=== PATIENT | male | born 1985 | race Caucasian/White ===

== ENCOUNTER 2016-07-06 05:56 | Emergency (ER) | payer MEDICAID ==
[~2016-07-06] VITALS: Ht 170.2 cm; Wt 62.8 kg
[~2016-07-06 05:56] MED LIST: OLAN2.5T3 PO
[2016-07-06 06:58] VITALS: BP 108/71
[2016-07-06] MEDS ORDERED: VANCOMYCIN PMX 1GM/200ML 200 ML IV ONE (07:00)
== END 2016-07-06 08:01 | disposition home or self-care (01) ==
LOC: ED 07:51
DX: L03.114 Cellulitis of left upper limb (principal); L02.413 Cutaneous abscess of right upper limb
CPT/HCPCS: 10061; 96365; 99284; J3370

== ENCOUNTER 2016-08-02 09:46 | Emergency (ER) | payer MEDICAID ==
[~2016-08-02] VITALS: Ht 170.2 cm; Wt 62.5 kg
[2016-08-02 09:50] VITALS: BP 115/78
[2016-08-02] MEDS ORDERED: SERT50TA PO (10:21)
== END 2016-08-02 10:52 | disposition home or self-care (01) ==
LOC: ED 10:30
DX: Z76.0 Encounter for issue of repeat prescription (principal); F20.9 Schizophrenia, unspecified; F15.10 Other stimulant abuse, uncomplicated
CPT/HCPCS: 99283

== ENCOUNTER 2016-12-23 09:56 | Emergency (ER) | payer MEDICAID ==
[~2016-12-23] VITALS: Ht 170.2 cm; Wt 67.6 kg
[~2016-12-23 09:56] MED LIST changes: +SERT50TA PO
[2016-12-23 11:01] VITALS: BP 122/81
== END 2016-12-23 11:26 | disposition left against medical advice (07) ==
LOC: ED 10:31
DX: R07.2 Precordial pain (principal); F19.10 Other psychoactive substance abuse, uncomplicated
CPT/HCPCS: 71010; 93005; 99284

== ENCOUNTER 2017-04-28 01:19 | Emergency (ER) | payer SELFPAY ==
[~2017-04-28] VITALS: Ht 170.2 cm; Wt 60.0 kg
[2017-04-28] MEDS ORDERED: KETOROLAC 30 MG/1 ML ONE (01:43)
[2017-04-28] MEDS ORDERED: DIPH,PERTUSS(ACELL),TET VAC/PF 0.5 ML IM-VACC ONE ×2 (01:43→02:00)
[2017-04-28] MEDS ORDERED: KETOROLAC 30 MG/1 ML IM ONE (02:00)
[2017-04-28 03:31] VITALS: BP 88/55
== END 2017-04-28 03:42 | disposition home or self-care (01) ==
LOC: ED 03:36
DX: S52.601A Unspecified fracture of lower end of right ulna, initial encounter for closed fracture (principal); S50.811A Abrasion of right forearm, initial encounter; S50.812A Abrasion of left forearm, initial encounter; G89.11 Acute pain due to trauma; Y04.0XXA Assault by unarmed brawl or fight, initial encounter; Y93.89 Activity, other specified; Y92.89 Other specified places as the place of occurrence of the external cause; Y99.8 Other external cause status
CPT/HCPCS: 29125; 73090; 90471; 90715; 96372; 99284; J1885

== ENCOUNTER 2017-12-10 11:29 | Emergency (ER) | payer MEDICAID, OTHER ==
[~2017-12-10] VITALS: Ht 170.2 cm; Wt 73.9 kg
[2017-12-10] MEDS ORDERED: LORazepam 1MG TABLET PO ONE (13:30)
[2017-12-10 13:46] VITALS: BP 114/77
== END 2017-12-10 13:48 | disposition home or self-care (01) ==
LOC: ED 13:40
DX: F41.1 Generalized anxiety disorder (principal); R44.0 Auditory hallucinations; F17.200 Nicotine dependence, unspecified, uncomplicated
CPT/HCPCS: 99284

== ENCOUNTER 2018-04-20 17:58 | Emergency (ER) | payer MEDICAID ==
[~2018-04-20] VITALS: Ht 170.2 cm; Wt 78.0 kg
--- NOTE | 2018-04-20 18:16 | NUR ---
BIB [facility] WITH C/O AUDITORY HALLUCINATIONS. PT WAS RELEASED ALCOHOL REHAB TODAY AFTER BEING IN REHAB FOR 30 DAYS. STATES DRANK 1 BEER TODAY. HX OF SCHIZOPHRENIA. STATES HALLUCINATIONS X 5 YEARS. DENIES HI/SI. PT REQUESTING INPATIENT MENTAL HEALTH FOR MEDICATION CHANGE. NAD NOTED AT THIS TIME. BREATHING REGULAR AND UNLABORED. PT PLACED ON CONT PULSE OX AND BP.
[2018-04-20] MEDS ORDERED: LORazepam 1MG TABLET PO ONE (18:30)
[2018-04-20] MEDS ORDERED: PLEASE ENTER HEIGHT AND WEIGHT MC SCH (18:30)
--- NOTE | 2018-04-20 18:41 | NUR ---
SW AT BEDSIDE.
[2018-04-20] MEDS ORDERED: LORazepam 1MG TABLET ONE (18:58)
--- NOTE | 2018-04-20 19:12 | NUR ---
REPROT TO GI VARGAS.
--- NOTE | 2018-04-20 19:14 | NUR ---
REPORT RECEIVED FROM GI PEACOCK PT TO BE DC'D.
--- NOTE | 2018-04-20 19:20 | NUR ---
Note ronald in EDM - 04/20/18 at 1931 by BRYCE pt not found in room, no belongings present. all monitors have been removed and left on bed, gown on bed. pt exit not observed by staff. pt departed before receiving dc instructions.
[2018-04-20 19:21] VITALS: BP 114/73
--- NOTE | 2018-04-20 19:31 | NUR ---
NOTE UNDONE, CHARTED IN ERROR.
--- NOTE | 2018-04-20 19:32 | NUR ---
PT GIVEN DC INSTRUCTIONS. PT REPORTS FEELING BETTER S/P ATIVAN. PT EDUCATED NOT TO DRIVE, PT STATES HE HAS BUS PASS. PT A&O, RESPS EVEN AND UNLABORED, NO COMPLAINT AT DC. PT AMB TO DC DESK WITH STEADY GAIT, NADN AT DC.
== END 2018-04-20 19:22 | disposition home or self-care (01) ==
LOC: ED 18:27
DX: F41.1 Generalized anxiety disorder (principal); F17.200 Nicotine dependence, unspecified, uncomplicated
CPT/HCPCS: 99284

== ENCOUNTER 2018-09-25 17:10 | Emergency (ER) | payer MEDICAID ==
[~2018-09-25] VITALS: Ht 170.2 cm; Wt 61.6 kg
[2018-09-25 17:15] VITALS: BP 119/68
== END 2018-09-25 17:54 | disposition home or self-care (01) ==
LOC: ED 17:15
DX: L03.113 Cellulitis of right upper limb (principal); L03.116 Cellulitis of left lower limb; L03.115 Cellulitis of right lower limb; L03.114 Cellulitis of left upper limb
CPT/HCPCS: 99283

== ENCOUNTER 2019-04-15 15:44 | Emergency (ER) | payer MEDICAID ==
[~2019-04-15] VITALS: Ht 182.9 cm; Wt 75.0 kg
[2019-04-15 16:14] LABS: BASOPHILS # (AUTO) 0.06 x10^3/uL (0-0.1); BASOPHILS % (AUTO) 1 % (0-1); EOSINOPHILS # (AUTO) 0.09 x10^3/uL (0-0.4); EOSINOPHILS % (AUTO) 1 % (1-7); LYMPHOCYTES # (AUTO) 4.08 x10^3/uL (1-3.4); LYMPHOCYTES % (AUTO) 44 % (22-44); MD NO; MEAN CORPUSCULAR HEMOGLOBIN 32.1 pg (27.5-34.5); MEAN CORPUSCULAR HGB CONC 33.8 g/dL (33.2-36.2); MEAN CORPUSCULAR VOLUME 94.9 fL (81-97); MEAN PLATELET VOLUME 6.8 fL (7.4-10.4); MONOCYTES # (AUTO) 0.65 x10^3/uL (0.2-0.8); MONOCYTES % (AUTO) 7 % (2-9); NEUTROPHILS % (AUTO) 48 % (42-75); PLATELET COUNT 477 x10^3/uL (130-400); RED CELL DISTRIBUTION WIDTH 13.4 % (9.4-14.8)
[2019-04-15 16:28] LABS: ALBUMIN 3.5 g/dL (3.4-5.0); ANION GAP 8 mmol/L (5-15); CALCIUM 8.2 mg/dL (8.5-10.1); CHLORIDE 111 mmol/L (98-107); SALICYLATE LEVEL 3.4 mg/dL (2.8-20.0)
[2019-04-15 16:29] LABS: CREATININE 0.74 mg/dL (0.7-1.3)
--- NOTE | 2019-04-15 16:29 | NUR ---
PT LAYING IN BED, RESPIRATIONS EVEN AND UNLABORED, SNORING HEARD, NO SIGNS OF DISTRESS.
--- NOTE | 2019-04-15 17:06 | NUR ---
pt laying in bed, eyes closed, moaning, moving all extremities, still only responsive to painful stimuli. will continue to monitor.
--- NOTE | 2019-04-15 17:10 | NUR ---
pt to ct.
--- NOTE | 2019-04-15 17:37 | NUR ---
pt vomitted on return from ct, respirations remain even and unlabored, pt did not wake up during or after vomitting, vomit was thin liquid, yellow. wiped vomit off of pt, repositioned in bed so laying on side, yun placed under pt head.
[2019-04-15 18:15] VITALS: BP 139/81
--- NOTE | 2019-04-15 18:25 | NUR ---
PT LAYING ON SIDE, RESPIRATIONS EVEN AND UNLABORED.
--- NOTE | 2019-04-15 19:01 | NUR ---
REPORT GIVEN TO GI MERCER.
--- NOTE | 2019-04-15 19:16 | NUR ---
Received report and assumed patient care. patient lethargic and difficulty to arouse, groans with pain, but doesn't open eyes. Patient's respiratory status remains continuously monitored with a pulsatile oxygen sensor. At 2 liters per minute nasal cannula patients oxygen saturation remains >95%. Awaiting metabolization of intoxicants.
--- NOTE | 2019-04-15 21:07 | NUR ---
Patient remains sidelying right, oxygen > 99% on 2L nasal cannula, still difficult to arouse.
[2019-04-15] MEDS ORDERED: ACETAMINOPHEN 325 MG TABLET PO PRN (23:00)
--- NOTE | 2019-04-15 23:14 | NUR ---
pt. is completely ambulatory. Practically sped walked the road test.
--- NOTE | 2019-04-15 23:56 | NUR ---
RN to bedside, confirmed patient able to ambulate steadily. REturned to bed, awaiting discharge.
== END 2019-04-16 00:46 | disposition home or self-care (01) ==
LOC: ED 16:44
DX: F10.220 Alcohol dependence with intoxication, uncomplicated (principal); F20.9 Schizophrenia, unspecified; F17.200 Nicotine dependence, unspecified, uncomplicated; Y90.9 Presence of alcohol in blood, level not specified
CPT/HCPCS: 36415; 70450; 80048; 80307; 82040; 85025; 99284; 99285